=== PATIENT | female | born 1950 | race Two or more races ===

== ENCOUNTER 2025-06-18 15:30 | Emergency (ER) | payer OTHER ==
[~2025-06-18] VITALS: Ht 167.6 cm; Wt 136.1 kg
[2025-06-18] MEDS ORDERED: FAMOtidine 10 MG/ML (4ML VIAL) IV ONE (15:45)
[2025-06-18] MEDS ORDERED: METHYLPREDNISOLONE SOD SUCC 125 MG VIAL IV ONE (15:45)
[2025-06-18] MEDS ORDERED: LEVALBUTEROL HCL 1.25 MG/3 ML SOLUTION IH ONE (15:45)
[2025-06-18] MEDS ORDERED: 0.9 % SODIUM CHLORIDE 1,000 ML IV ONE (15:45)
[2025-06-18] MEDS ORDERED: GRALISE600 MG PO (15:50)
[2025-06-18] MEDS ORDERED: DICLOFENAC35 MG PO (15:51)
[2025-06-18 16:21] LABS: BASO % 0.4 % (0.1-1.2); EOS # 0.12 (0.04-0.54); EOS % 1.3 % (0.7-7.0); LYMPH # 0.63 (1.18-3.74); LYMPH % 7.1 % (19.3-53.1); MEAN PLATELET VOLUME 10.00 fl (9.4-12.4); MONO # 0.53 (0.24-0.82); MONO % 5.9 % (4.7-12.5); NEUT # 7.57 (1.56-6.13); NEUT % 85.1 % (34.0-71.1); RED CELL DISTRIBUTION WIDTH 12.9 % (11.6-14.4)
[2025-06-18 16:55] LABS: INR 1.02
[2025-06-18 17:10] LABS: ALT/SGPT 18.0 U/L (12-78); AST/SGOT 15.0 U/L (15-37); BILIRUBIN TOTAL 1.18 mg/dL (0.3-1.2); BUN CREA RATIO 20.0 (7.0-25.0); CREATININE SERUM 0.98 mg/dL (0.55-1.02); GFR 55.32; GLOBULINA 4.0 G/DL (2.4-3.5); GLUCOSE FASTING 106.0 mg/dL (65-100); LDH 211.0 U/L (84-246); OSMOLALITY SERUM 279.0 MOSM/KG (275-295)
[2025-06-18 17:17] LABS: COVID-19 AG NEGATIVE (NEGATIVE)
[2025-06-18 17:21] LABS: D DIMER 3.15 MG/L
[2025-06-18] MEDS ORDERED: LEVALBUTEROL HCL 1.25 MG/3 ML SOLUTION IH SCH (20:22)
[2025-06-18] MEDS ORDERED: PEPCID AC20 MG PO (23:19)
[2025-06-18] MEDS ORDERED: LEVALBUTER0.63 MG/3 IH (23:19)
[2025-06-19] MEDS ORDERED: LEVALBUTEROL HCL 1.25 MG/3 ML SOLUTION IH ONE (00:18)
== END 2025-06-19 03:45 | disposition home or self-care (01) ==
LOC: ER 15:30
PROVIDERS: General Practice
DX: R06.02 Shortness of breath (principal); Z20.822 Contact with and (suspected) exposure to COVID-19